=== PATIENT | female | born 1995 | race Caucasian/White ===

== ENCOUNTER 2019-01-10 10:04 | Emergency (ER) | payer OTHER, SELFPAY ==
[2019-01-10] MEDS ORDERED: ACETAMINOPHEN 325 MG TABLET ONE (10:49)
[2019-01-10] MEDS ORDERED: PEN G BENZ LA 1.2MU/2ML SYRINGE IM ONE (11:25)
--- NOTE | 2019-01-10 11:33 | EDPHYS ---
Physician Documentation [facility] Name: Shelby Mcgee Age: 23 yrs Sex: Female : 1995 Arrival Date: 01/10/2019 Time: 10:07 Bed 16 Private MD: Ubaldo Miller ED Physician Dajuan Vick HPI: 01/10 10:26 This 23 yrs old Female presents to ER via Ambulatory with complaints of Sore jmm Throat. 10:26 The patient presents with sore throat. Onset: The symptoms/episode began/occurred jmm gradually, 1 day(s) ago. This is a 23 year old female with no chronic medical conditions that presents to the ED with complaints of sore throat and chills beginning 1 days ago. Patient denies cough, denies vomiting. . 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 - Ebola Screening: : Patient negative for fever greater than or equal to 101.5 degrees Fahrenheit, and additional compatible Ebola Virus Disease symptoms. - Social history:: Smoking status: Patient/guardian denies using tobacco. ROS: 10:26 Constitutional: Positive for chills. jmm 10:26 ENT: Positive for sore throat. 10:26 Respiratory: Negative for cough, shortness of breath. 10:26 All other systems are negative. Exam: 10:26 Constitutional: This is a well developed, well nourished patient who is awake, alert, jmm and in no acute distress. Head/Face: atraumatic. Eyes: EOMI, no conjunctival erythema appreciated ENT: Moist Mucus Membranes Neck: Trachea midline, Supple Chest/axilla: Normal chest wall appearance and motion. Cardiovascular: Regular rate and rhythm. No edema appreciated Respiratory: Normal respirations, no respiratory distress appreciated Abdomen/GI: Non distended, soft 10:26 Skin: General appearance color normal MS/ Extremity: Moves all extremities, no obvious deformities appreciated, no edema noted to the lower extremities 10:26 ENT: Posterior pharynx: Uvula: normal, erythema, that is moderate. Vital Signs: 10:10 BP 130 / 84; Pulse 93; Resp 18; Temp 98.1(O); Pulse Ox 100% ; Weight 61.23 kg; Height 5 sv ft. 7 in. (170.18 cm); Pain 7/10; 11:12 BP 126 / 84; Pulse 78; Resp 16; Pulse Ox 100% on R/A; rb1 10:10 Body Mass Index 21.14 (61.23 kg, 170.18 cm) sv MDM: 10:17 Patient medically screened. [facility] 11:31 Data reviewed: vital signs, nurses notes. Counseling: I had a detailed discussion with jodi the patient and/or guardian regarding: the historical points, exam findings, and any diagnostic results supporting the discharge/admit diagnosis, lab results, the need for outpatient follow up, to return to the emergency department if symptoms worsen or persist or if there are any questions or concerns that arise at home. ED course: Patient is alert and non toxic in appearance. Patient advised to follow up with PCP and otherwise given strict return precautions. patient understood and agrees with the plan of care. . 01/10 10:24 Order name: Strep; Complete Time: 10:55 [facility] Administered Medications: 10:38 Drug: Tylenol 650 mg Route: PO; rb1 11:15 Follow up: Response: No adverse reaction rb1 11:15 Drug: Bicillin L-A 1.2 million units Route: IM; Site: right gluteus; rb1 11:40 Follow up: Response: No adverse reaction rb1 Disposition: 01/11 08:07 Co-signature as Attending Physician, Dajuan Vick MD I agree with the assessment and [facility] plan of care. Disposition: 01/10/19 11:32 Discharged to Home. Impression: Streptococcal pharyngitis. - Condition is Stable. - Discharge Instructions: Pharyngitis, Strep Throat. - Medication Reconciliation Form, Thank You Letter, Antibiotic Education, Prescription Opioid Use form. - Follow up: Ubaldo Miller MD; When: 2 - 3 days; Reason: Recheck today's complaints, Continuance of care, Re-evaluation by your physician. Signatures: Dispatcher [employer] Elizabeth Florentino RN RN sv Anderson, Corey, MD MD cha Mickail, Joel, PA PA jmm Barber, Rebecca, RN RN rb1 Corrections: (The following items were deleted from the chart) 01/10 12:00 11:32 01/10/2019 11:32 Discharged to Home. Impression: Streptococcal pharyngitis. rb1 Condition is Stable. Forms are Medication Reconciliation Form, Thank You Letter, Antibiotic Education, Prescription Opioid Use. Follow up: Ubaldo Miller; When: 2 - 3 days; Reason: Recheck today's complaints, Continuance of care, Re-evaluation by your physician. jodi
--- NOTE | 2019-01-10 11:33 | ER ---
Nurse's Notes [facility] Name: Shelby Mcgee Age: 23 yrs Sex: Female : 1995 Arrival Date: 01/10/2019 Time: 10:07 Bed 16 Private MD: Ubaldo Miller Diagnosis: Streptococcal pharyngitis Presentation: 01/10 10:09 Presenting complaint: Patient states: sore throat x 1 day, "There are nasty dots back sv there and my throat is swollen.". Transition of care: patient was not received from another setting of care. Onset of symptoms was January 09, 2019. Risk Assessment: Do you want to hurt yourself or someone else? Patient reports no desire to harm self or others. Care prior to arrival: None. 10:09 Method Of Arrival: Ambulatory sv 10:09 Acuity: JEREL 4 sv 10:12 Initial Sepsis Screen: Does the patient meet any 2 criteria? No. Patient's initial rb1 sepsis screen is negative. Does the patient have a suspected source of infection? No. Patient's initial sepsis screen is negative. 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 - Ebola Screening: : Patient negative for fever greater than or equal to 101.5 degrees Fahrenheit, and additional compatible Ebola Virus Disease symptoms. - Social history:: Smoking status: Patient/guardian denies using tobacco. Screenin:12 Abuse screen: Denies threats or abuse. Nutritional screening: No deficits noted. rb1 Tuberculosis screening: No symptoms or risk factors identified. Fall Risk None identified. Assessment: 10:12 General: Appears in no apparent distress. comfortable, Behavior is calm, cooperative, rb1 Denies fever. Pain: Complains of pain in throat Pain currently is 6 out of 10 on a pain scale. Neuro: Level of Consciousness is awake, alert, obeys commands, Oriented to person, place, time, situation. Cardiovascular: Capillary refill < 3 seconds is brisk in bilateral fingers. Respiratory: Airway is patent Respiratory effort is even, unlabored, Respiratory pattern is regular, symmetrical, Breath sounds are clear bilaterally. GI: Reports diarrhea, nausea. : No signs and/or symptoms were reported regarding the genitourinary system. EENT: Throat is reddened. Derm: Skin is pink, warm \\T\\ dry. 11:12 Reassessment: Patient appears in no apparent distress at this time. No changes from rb1 previously documented assessment. Vital Signs: 10:10 BP 130 / 84; Pulse 93; Resp 18; Temp 98.1(O); Pulse Ox 100% ; Weight 61.23 kg; Height 5 sv ft. 7 in. (170.18 cm); Pain 7/10; 11:12 BP 126 / 84; Pulse 78; Resp 16; Pulse Ox 100% on R/A; rb1 10:10 Body Mass Index 21.14 (61.23 kg, 170.18 cm) sv ED Course: 10:07 Patient arrived in ED. mr 10:08 Ubaldo Miller MD is Private Physician. mr 10:10 Triage completed. sv 10:11 Arm band placed on. sv 10:12 Helder Alfaro PA is PHCP. jmm 10:12 Dajuan Vick MD is Attending Physician. [facility] 10:12 Patient has correct armband on for positive identification. Bed in low position. Call rb1 light in reach. Side rails up X 1. Pulse ox on. NIBP on. 10:15 Demi Loo, DOMENICO is Primary Nurse. rb1 11:32 Ubaldo Miller MD is Referral Physician. [facility] 12:00 No provider procedures requiring assistance completed. Patient did not have IV access rb1 during this emergency room visit. Administered Medications: 10:38 Drug: Tylenol 650 mg Route: PO; rb1 11:15 Follow up: Response: No adverse reaction rb1 11:15 Drug: Bicillin L-A 1.2 million units Route: IM; Site: right gluteus; rb1 11:40 Follow up: Response: No adverse reaction rb1 Outcome: 11:32 Discharge ordered by . jm 12:00 Patient left the ED. rb1 12:00 Discharged to home ambulatory. rb1 12:00 Condition: stable 12:00 Discharge instructions given to patient, Instructed on discharge instructions, follow up and referral plans. Demonstrated understanding of instructions, follow-up care, Prescriptions given X none Signatures: Elizabeth Sheppard RN RN Helder Alfaro PA PA jmm Rivera, Angelina mr Eze, Demi, RN RN rb1
== END 2019-01-10 12:00 | disposition home or self-care (01) ==
LOC: ER 10:04
DX: J02.0 Streptococcal pharyngitis (principal); Z88.5 Allergy status to narcotic agent
CPT/HCPCS: 87081; 96372; 99283; J0561

== ENCOUNTER 2019-03-09 10:42 | Emergency (ER) | payer SELFPAY ==
[2019-03-09] MEDS ORDERED: ACETAMINOPHEN 325 MG TABLET ONE (11:16)
[2019-03-09] MEDS ORDERED: IBUPROFEN 400 MG TAB ONE (11:16)
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
== END 2019-03-09 13:56 | disposition home or self-care (01) ==
LOC: ER 10:42
PROC: 2W3CX1Z Immobilization of Right Lower Arm using Splint (ICD-10-PCS; principal; 2019-03-09)
DX: S52.231A Displaced oblique fracture of shaft of right ulna, initial encounter for closed fracture (principal); Y04.0XXA Assault by unarmed brawl or fight, initial encounter; Z88.5 Allergy status to narcotic agent
CPT/HCPCS: 99284

== ENCOUNTER 2019-08-20 19:16 | Emergency (ER) | payer SELFPAY ==
--- NOTE | 2019-08-20 21:56 | ER ---
Nurse's Notes [facility] Name: Shelby Mcgee Age: 23 yrs Sex: Female : 1995 Arrival Date: 08/20/2019 Time: 19:18 Bed 11 Private MD: Diagnosis: Acute pharyngitis Presentation: 08/20 19:43 Presenting complaint: Patient states: "I get strep throat often especially around this jd3 time of year. and I feel the symptoms may have returned.". Transition of care: patient was not received from another setting of care. Onset of symptoms was August 16, 2019. Risk Assessment: Do you want to hurt yourself or someone else? Patient reports no desire to harm self or others. Initial Sepsis Screen: Does the patient meet any 2 criteria? No. Patient's initial sepsis screen is negative. Does the patient have a suspected source of infection? No. Patient's initial sepsis screen is negative. Note Tylenol taken at 1830. Care prior to arrival: None. 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 - Social history:: Smoking status: Patient uses tobacco products, denies chronic smoking, but will smoke occasionally. - Ebola Screening: : Patient negative for fever greater than or equal to 101.5 degrees Fahrenheit, and additional compatible Ebola Virus Disease symptoms. Screenin:46 Abuse screen: Denies threats or abuse. Denies injuries from another. Nutritional eb1 screening: No deficits noted. Tuberculosis screening: No symptoms or risk factors identified. Fall Risk None identified. Assessment: 21:43 General: Appears in no apparent distress. Behavior is calm, cooperative, appropriate eb1 for age. Pain: Complains of pain in throat. Neuro: No deficits noted. Cardiovascular: No deficits noted. Respiratory: No deficits noted. Airway is patent Respiratory effort is even, unlabored, Breath sounds are clear bilaterally. GI: No deficits noted. No signs and/or symptoms were reported involving the gastrointestinal system. : No deficits noted. No signs and/or symptoms were reported regarding the genitourinary system. EENT: No deficits noted. No signs and/or symptoms were reported regarding the EENT system. Throat is reddened. Vital Signs: 19:45 BP 135 / 84; Pulse 98; Resp 17 S; Temp 98.4(TE); Pulse Ox 99% on R/A; Weight 61.23 kg jd3 (R); Height 5 ft. 7 in. (170.18 cm) (R); Pain 5/10; 21:45 BP 124 / 79; Pulse 95; Resp 18; Temp 97.7(T); Pulse Ox 96% on R/A; Pain 4/10; eb1 19:45 Body Mass Index 21.14 (61.23 kg, 170.18 cm) jd3 ED Course: 19:18 Patient arrived in ED. ds1 19:44 Triage completed. jd3 19:46 Arm band placed on. jd3 20:31 Keira Coreas FNP-C is PHCP. kb 20:31 Dajuan Vick MD is Attending Physician. kb 21:34 Helder Alfaro PA is PHCP. [facility] 21:34 Dajuan Vick MD is Attending Physician. jodi 21:34 PHCP role handed off by Helder Alfaro PA kb 21:34 Keira Coreas FNP-C is PHCP. kb 21:34 Helder Alfaro PA is PHCP. kb 21:43 Strep Sent. eb1 21:46 Patient has correct armband on for positive identification. Bed in low position. Call eb1 light in reach. 22:19 No provider procedures requiring assistance completed. Patient did not have IV access eb1 during this emergency room visit. Administered Medications: No medications were administered Outcome: 21:55 Discharge ordered by . jodi 22:19 Discharged to home ambulatory. eb1 22:19 Condition: good 22:19 Discharge instructions given to patient, Instructed on discharge instructions, follow up and referral plans. medication usage, Demonstrated understanding of instructions, follow-up care, medications, Prescriptions given X 1. 22:20 Patient left the ED. eb1 Signatures: Keira Coreas FNP-C MOTOR POWER CONNECTOR-Helder Escoto PA PA jmm Sanford, Demi ds1 Tomás Cameron, RN RN jd3 Holley Gimenez, RN RN eb1
--- NOTE | 2019-08-20 21:57 | EDPHYS ---
Physician Documentation [facility] Name: Shelby Mcgee Age: 23 yrs Sex: Female : 1995 Arrival Date: 08/20/2019 Time: 19:18 Bed 11 Private MD: ED Physician Dajuan Vick HPI: 08/20 21:51 This 23 yrs old Female presents to ER via Ambulatory with complaints of Sore jmm Throat. 21:51 The patient presents with sore throat. Onset: The symptoms/episode began/occurred jmm gradually. Modifying factors: The symptoms are alleviated by nothing, the symptoms are aggravated by nothing. Associated signs and symptoms: Pertinent negatives chest pain, cough. This is a 23 year old female with no chronic medical conditions that presents ot the ED with complaints of sore throat beginning 2 to 3 days ago. . 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 - Social history:: Smoking status: Patient uses tobacco products, denies chronic smoking, but will smoke occasionally. - Ebola Screening: : Patient negative for fever greater than or equal to 101.5 degrees Fahrenheit, and additional compatible Ebola Virus Disease symptoms. ROS: 21:51 Constitutional: Negative for fever, chills, and weight loss, Cardiovascular: Negative jmm for chest pain, palpitations, and edema, Respiratory: Negative for shortness of breath, cough, wheezing, and pleuritic chest pain. 21:51 ENT: Positive for sore throat. 21:51 All other systems are negative. Exam: 21:51 Constitutional: This is a well developed, well nourished patient who is awake, alert, jmm and in no acute distress. Head/Face: atraumatic. Eyes: EOMI, no conjunctival erythema appreciated 21:51 Neck: Trachea midline, Supple Chest/axilla: Normal chest wall appearance and motion. Cardiovascular: Regular rate and rhythm. No edema appreciated Respiratory: Normal respirations, no respiratory distress appreciated Abdomen/GI: Non distended, soft Back: Normal ROM Skin: General appearance color normal MS/ Extremity: Moves all extremities, no obvious deformities appreciated, no edema noted to the lower extremities Neuro: Awake and alert, normal gait Psych: Behavior is normal, Mood is normal, Patient is cooperative and pleasant 21:51 ENT: Posterior pharynx: Airway: normal, Tonsils: Uvula: midline, erythema, that is moderate. Vital Signs: 19:45 BP 135 / 84; Pulse 98; Resp 17 S; Temp 98.4(TE); Pulse Ox 99% on R/A; Weight 61.23 kg jd3 (R); Height 5 ft. 7 in. (170.18 cm) (R); Pain 5/10; 21:45 BP 124 / 79; Pulse 95; Resp 18; Temp 97.7(T); Pulse Ox 96% on R/A; Pain 4/10; eb1 19:45 Body Mass Index 21.14 (61.23 kg, 170.18 cm) jd3 MDM: 21:50 Patient medically screened. [facility] 21:51 Data reviewed: vital signs, nurses notes. Counseling: I had a detailed discussion with jodi the patient and/or guardian regarding: the historical points, exam findings, and any diagnostic results supporting the discharge/admit diagnosis, the need for outpatient follow up, to return to the emergency department if symptoms worsen or persist or if there are any questions or concerns that arise at home. ED course: Patient is alert and non toxic in appearance in the ED. Patient advised to follow up with pcp and otherwise given strict return precautions. Patient understood and agrees with the plan of care. . 08/20 20:31 Order name: Strep kb 08/20 21:09 Order name: Group A Streptococcus Rapid Sc; Complete Time: 21:11 EDMS Administered Medications: No medications were administered Disposition: 08/20/19 21:55 Discharged to Home. Impression: Acute pharyngitis. - Condition is Stable. - Discharge Instructions: Pharyngitis. - Prescriptions for Amoxicillin 875 mg Oral Tablet - take 1 tablet by ORAL route every 12 hours for 10 days; 20 tablet. - Medication Reconciliation Form, Thank You Letter, Antibiotic Education, Prescription Opioid Use form. - Follow up: Private Physician; When: 2 - 3 days; Reason: Recheck today's complaints, Continuance of care, Re-evaluation by your physician. Addendum: 08/23/2019 10:42 Co-signature as Attending Physician, Dajuan Vick MD I agree with the assessment and c roberts plan of care. Signatures: Dispatcher [employer] EDKeira Dietrich, [employer]-Becky CRANEP-Dajuan Bray MD MD cha Mickail, Joel, PA PA jmm Davies, Jonathon, RN RN jd3 Holley Gimenez RN RN eb1 Corrections: (The following items were deleted from the chart) 08/20 22:20 21:55 08/20/2019 21:55 Discharged to Home. Impression: Acute pharyngitis. Condition is eb1 Stable. Forms are Medication Reconciliation Form, Thank You Letter, Antibiotic Education, Prescription Opioid Use. Follow up: Private Physician; When: 2 - 3 days; Reason: Recheck today's complaints, Continuance of care, Re-evaluation by your physician. jodi
[2019-08-21 04:47] VITALS: BP 124/79; TEMP 97.7; O2SAT 96
== END 2019-08-20 22:20 | disposition home or self-care (01) ==
LOC: ER 19:16
DX: J02.9 Acute pharyngitis, unspecified (principal); Z88.5 Allergy status to narcotic agent
CPT/HCPCS: 87070; 87081; 99283

== ENCOUNTER 2022-07-10 08:47 | Emergency (ER) | payer OTHER ==
--- OUTSIDE RECORDS SUMMARY | 2022-07-10 08:50 | XMS REPORT | Continuity of Care Document ---
:1995 Author Organization [facility] t Address [address] [place] [address] Care Team Providers Name Role Phone Pcp, Patient Does Not Have A Primary Care Physician [id number] Shawna Tompkins Attending Clinician Unavailable Doctor Unassigned, [place] Attending Clinician Unavailable Nurse, [facility] Attending Clinician Unavailable Provider, [facility] Attending Clinician Unavailable Mariela Miller Attending Clinician MARIELA BELCHER Attending Clinician Unavailable Shawna Tompkins Admitting Clinician Unavailable Physician, No Primary or Family Admitting Clinician Unavaila [employer] [facility] Payers Payer Name Policy Type Policy Number Effective Date Expiration Date S ource Problems Condition Condition Condition Status Onset Resolution Last Treating Co mments Source Name Details Category Date Date Treatment Clinician Date No known No known Disease Unive rs active active ity of problems problems [facility] Allergies, Adverse Reactions, Alerts Allergy Allergy Status Severity Reaction(s) Onset Inactive Treating Comm ents Source Name Type Date Date Clinician No Known DA Active U 2019-09 [facility] [place] No Known DA Active U 2019-09 [facility] Allergie 2- [facility] 00 [facility] NO KNOWN Drug Active Univers ALLERGIE Class ity of S [facility] Social History Social Habit Start Date Stop Date Quantity Comments Source Exposure to Not sure [facility] SARS-CoV-2 [place] [facility] (event) Branch Tobacco use and 2021-01-30 2021-01-30 Never used Universit y of exposure 00:00:00 00:00:00 [facility] Alcohol intake 2021-01-30 2021-01-30 Current drinker of Un iversity of 00:00:00 00:00:00 alcohol (finding) [facility] edical [place] Alcohol Comment 2016-06-04 2016-06-04 Occasional drink Uni versity of 00:00:00 00:00:00 [facility] Sex Ass[birth year] At [birth year] Universit y of 00:00:00 00:00:00 [facility] Smoking Status Start Date Stop Date Source Never smoker [facility] Medications Ordered Filled Start Stop Current Ordering Indication Dosage Frequency Signature Comments Components Source Medication Medication Date Date Medication? Clinician (SIG) Name Name methylPREDN 2020- No [id number] Take by Univers ISolone 4 -02 02-21 mouth ity of mg tablets 00:00: 04:59 SEE-INSTRU [place] 00 :00 CTIONS for Medical 6 days. Branch follow package directions triamcinolo 2020- No [id number] 40mg Univers ne 5-10 05-10 ity of acetonide 22:00: 21:12 [place] (KENALOG) 00 :00 Medical injection Branch 40 mg triamcinolo 2020- No [id number] 40mg 40 mg, Univers ne 5-10 05-10 Intramuscu ity of acetonide 22:00: 21:12 [place]CE, [place] (KE[place] 00 :00 1 dose, Medical injection Mon Branch 40 mg 01/29/21 at 1700, Routine triamcinolo 2020- No [id number] 40mg Univers ne 5-10 05-10 ity of acetonide 22:00: 21:12 [place] (KENALOG) 00 :00 Medical injection Branch 40 mg triamcinolo 2020- No [id number] 40mg 40 mg, Univers ne 5-10 05-10 Intramuscu ity of acetonide 22:00: 21:12 [place], [place]CE, [place] (KE[place]LOG[place] 00 :00 1 dose, Medical injection Mon Branch 40 mg 01/29/21 at 1700, Routine triamcinolo 2020- No [id number] Apply to [facility] - 05-25 area(s) 2 ity of acetonide 00:00: 04:59 (two) [place] 0.1 % 00 :00 times Medical ointment daily for Branch 14 days. triamcinolo 2020- No [id number] Apply to [facility] -06 26-25 area(s) 2 ity of acetonide 00:00: 04:59 (two) [place] 0.1 % 00 :00 times Medical ointment daily for Branch 14 days. triamcinolo 2020- No [id number] Apply to [facility] 01-29-25 area(s) 2 ity of acetonide 00:00: 04:59 (two) [place] 0.1 % 00 :00 times Medical ointment daily for Branch 14 days. Nitrofurant 2020- No [id number] 100mg Take 1 Univers oin&Nit. 5-10 05-16 capsule by ity of [place] 00:00: 04:59 mouth 2 [place] (MACROBID) 00 :00 (two) Medical 100 mg times Branch capsule daily for 5 days. Nitrofurant 2020- No [id number] 100mg Take 1 Univers oin&Nit. 5-10 05-16 capsule by ity of Macrocryst 00:00: 04:59 mouth 2 [place] (MACROBID) 00 :00 (two) Medical 100 mg times Branch capsule daily for 5 days. Nitrofurant 2020- No [id number] 100mg Take 1 Univers oin&Nit. 5-10 05-16 capsule by ity of Macrocryst 00:00: 04:59 mouth 2 [place] (MACROBID) 00 :00 (two) Medical 100 mg times Branch capsule daily for 5 days. miconazole Yes Apply to Uni vers (MICOTIN) 2 9-22 area(s) 2 ity of % cream 00:00: (two) [place] 00 times Medical daily. Branch miconazole Yes Apply to Uni vers (MICOTIN) 2 9-22 area(s) 2 ity of % cream 00:00: (two) [place] 00 times Medical daily. Branch miconazole 2016-0 Yes Apply to Uni vers (MICOTIN) 2 9-22 area(s) 2 ity of % cream 00:00: (two) [place] 00 times Medical daily. Branch miconazole 2016-0 Yes Apply to Uni vers (MICOTIN) 2 9-22 area(s) 2 ity of % cream 00:00: (two) [place] 00 times Medical daily. Branch miconazole 2016-0 Yes Apply to Uni vers (MICOTIN) 2 9-22 area(s) 2 ity of % cream 00:00: (two) [place] 00 times Medical daily. Branch miconazole 2016-0 Yes Apply to Uni vers (MICOTIN) 2 9-22 area(s) 2 ity of % cream 00:00: (two) [place] 00 times Medical daily. Branch econazole 2015-0 Yes [id number] Apply to Univers nitrate 1 % 9-21 area(s) 2 ity of cream 00:00: (two) [place] 00 times Medical daily. Branch econazole 2016-0 Yes [id number] Apply to Univers nitrate 1 % 9-21 area(s) 2 ity of cream 00:00: (two) [place] 00 times Medical daily. Branch econazole 2016-0 Yes [id number] Apply to Univers nitrate 1 % 9-21 area(s) 2 ity of cream 00:00: (two) [place] 00 times Medical daily. Branch econazole 2016-0 Yes [id number] Apply to Univers nitrate 1 % 9-21 area(s) 2 ity of cream 00:00: (two) [place] 00 times Medical daily. Branch econazole 2016-0 Yes [id number] Apply to Univers nitrate 1 % 9-21 area(s) 2 ity of cream 00:00: (two) [place] 00 times Medical daily. Branch econazole 2016-0 Yes [id number] Apply to Univers nitrate 1 % 9-21 area(s) 2 ity of cream 00:00: (two) [place] 00 times Medical daily. [place] Vital Signs Vital Name Observation Time Observation Value Comments Source Systolic blood 2021-01-29 20:34:00 113 mm[Hg] Univer sity of pressure [facility] Diastolic blood 2021-01-29 20:34:00 76 mm[Hg] Unive rsity of pressure [facility] Heart rate 2021-01-29 20:34:00 101 /min [facility] Body temperature 2021-01-29 20:34:00 37.28 [facility] Respiratory rate 2021-01-29 20:34:00 18 /[facility] Body height 2021-01-29 20:34:00 170.2 cm [facility] Body weight 2021-01-29 20:34:00 65.772 kg [facility] BMI 2021-01-29 20:34:00 22.71 kg/m2 [facility] Oxygen saturation in 2021-01-29 20:34:00 98 /min [facility] Arterial blood by [facility] Pulse oximetry [place] Procedures Procedure Date / Time Performed Performing Clinician [facility] florian URINALYSIS 2021-01-29 21:13:00 [facility] URINE CULTURE 2021-01-29 21:13:00 [facility] CONSENT/REFUSAL FOR 2021-01-29 20:29:08 Doctor Unassigned, No Un [facility] DIAGNOSIS AND Name [facility] TREATMENT [id number] 2020-09-13 00:00:00 [facility] [id number] 2020-09-13 00:00:00 [facility] [id number] 2020-09-13 00:00:00 [facility] [id number] 2020-09-13 00:00:00 [facility] Encounters Start End Encounter Admission Attending Care Care Encounter Source Date/Time Date/Time Type Type Clinicians Facility Department ID 2020-09-12 Inpatient ANDREINA Tompkins, [facility] [id number] [facility] 09:00:00 Shawna 29 [place] [facility] 2021-05-29 2021-05-29 Letter Doctor ADAM [id number] Univers 00:00:00 00:00:00 (Out) Unassigned, NEIL 350.1.13.10 ity of [place] [facility] 4.2.7.2.686 [place] [phone] [place] [address] Branch 2021-02-02 2021-02-02 Telephone Nurse, Tony [facility] [id number] Univers 00:00:00 00:00:00 Ur[facility] Care Health 350.1.13.10 ity of Surgical 4.2.7.2.686 [place] Specialti [phone] Wy dical es [address] [facility] 2021-01-29 2021-01-29 Urgent Provider, Tony [facility] [id number] Univers 15:32:09 16:07:37 [facility] 350.1.13.10 ity of [place] 4.2.7.2.686 [place] Professio [phone] [facility] [address] [place] [address] 2021-01-29 2021-01-29 Outpatient R SIMI [facility] [id number] Univers 15:20:00 15:20:00 MARIELA ity [facility] 2021-01-29 2021-01-29 Orders Doctor ADAM [id number] Univers 00:00:00 00:00:00 Only Unassigned, NEIL 350.1.13.10 ity of [place] [facility] 4.2.7.2.686 Moiz as [phone] [facility] [address] [place] 2020-05-17 2020-05-17 Outpatient Yoni [facility] RADI [id number] [facility] 08:00:00 08:00:00 [facility]a [facility] [place] [facility] 2020-04-19 2020-04-19 Outpatient Yoni [facility] RADI [id number] [facility] 08:00:00 08:00:00 Shawna [facility] Results Test Description Test Time Test Comments Results Result Comments Source URINALYSIS 2021-01-30 01:49:51 Test Item Value Reference Range Interpretation Comme nts APPEARANCE (test code = Hazy Clear A 5318031665) COLOR (test code = 1958756531) Mikaela Yellow A PH (test code = 3595443364) 4.8-8.0 SP GRAVITY (test code = 1.003-1.030 9665945813) GLU U QUAL (test code = Normal Normal 2034964865) BLOOD (test code = 5295962548) 1+ Negative A KETONES (test code = 9874456368) Negative Negative PROTEIN (test code = 2887-8) Negative Negative UROBILIN (test code = 4.0 mg/dL Normal A 6165524074) BILIRUBIN (test code = Negative Negative 8495174626) NITRITE (test code = 9849722896) Positive Negative A LEUK IZABEL (test code = Negative Negative 4669219412) RBC/HPF (test code = 6393838974) <1 See_Comment [Automated message] The system which ge nerated this result transmit gilda reference range: 0 - 3 HP F. The reference range was not used to interpret th is result as normal/abnormal . WBC/HPF (test code = 8505041650) See_Comment [Automated message] The system which ge nerated this result transmit gilda reference range: 0 - 5 HP F. The reference range was not used to interpret th is result as normal/abnormal . BACTERIA (test code = Many Negative A 4057480950) MUCOUS (test code = 0573646876) Moderate Negative LPF A SQ EPITH (test code = HPF 2496155271) CA OXALATE (test code = See_Comment H [Au tomated message] The 2271539289) system which ge nerated this result transmit gilda reference range: <=1 HPF. The reference range was not used to interpret th is result as normal/abnormal . Lab Interpretation (test code = Abnormal 80469-7) [facility] 01:49:51 Test Item Value Reference Range Interpretation Comments APPEARANCE (test code = Hazy Clear A 4972302271) COLOR (test code = Mikaela Yellow A 5241674084) PH (test code = 4.8-8.0 8391895343) SP GRAVITY (test code = 1.003-1.030 3144750779) GLU U QUAL (test code = Normal Normal 8105804903) BLOOD (test code = 1+ Negative A 1350063823) KETONES (test code = Negative Negative 9686524694) PROTEIN (test code = Negative Negative 2887-8) UROBILIN (test code = 4.0 mg/dL Normal A 8067685110) BILIRUBIN (test code = Negative Negative 6496035549) NITRITE (test code = Positive Negative A 6186301853) LEUK IZABEL (test code = Negative Negative 7185955042) RBC/HPF (test code = <1 See_Comment [Autom ated message] 8409618492) The system [employer] generated this result transmit gilda reference range : 0 - 3 HPF. The refe rence range was not u sed to interpret th is result as normal/abnormal . WBC/HPF (test code = See_Comment [Autom ated message] 6422719115) The system [employer] generated this result transmit gilda reference range : 0 - 5 HPF. The refe rence range was not u sed to interpret th is result as normal/abnormal . BACTERIA (test code = Many Negative A 4556793871) MUCOUS (test code = Moderate Negative LPF A 2841519753) SQ EPITH (test code = HPF 8850805687) CA OXALATE (test code = See_Comment H [Au tomated message] 5889908580) The system [employer] generated this result transmit gilda reference range : <=1 HPF. The refere nce range was not u sed to interpret th is result as normal/abnormal . Lab Interpretation (test Abnormal code = 91494-1) [facility] [id number] 08:16:00 Test Item Value Reference Range Interpretation Comments HEMOGLOBIN (test code = HGB) 10.3 g/dL 10.7-13.9 L HEMATOCRIT (test code = HCT) 31.8 % 32.1-42.1 L AG HEPATITIS B [id number] 22:00:00 Test Item Value Reference Range Interpretation Comments AG HEPATITIS B SURFACE (test code NONREACTIVE NONREACTIVE = HBSAG) IS CONSENT FORM SIGNED FOR HIV TESTING? NAB HEPATITIS C [id number] 22:00:00 Test Item Value Reference Range Interpretation Comments AB HEPATITIS C (test code = NONREACTIVE NONREACTIVE HCVAB) SIGNAL TO CUTOFF (test code = 0.05 <0.80 N CUTOFF) IS CONSENT FORM SIGNED FOR HIV TESTING? NAB [id number] 22:00:00 Test Item Value Reference Range Interpretation Comments AB TREPONEMA (test code = TREPAB) NONREACTIVE NONREACTIVE IS CONSENT FORM SIGNED FOR HIV TESTING? NAB HIV 1 22:00:00 Test Item Value Reference Range Interpretation Comments AB HIV 1 2 (test NONREACTIVE NONREACTIVE [facility] code = MJH85CN) 4th Gen HIV Ag/Ab Combo Screen IS CONSENT FORM SIGNED FOR HIV TESTING? NAG HEPATITIS B [id number] 21:31:00 Test Item Value Reference Range Interpretation Comments AG HEPATITIS B SURFACE (test code NONREACTIVE NONREACTIVE = HBSAG) IS CONSENT FORM SIGNED FOR HIV TESTING? NAB HEPATITIS C [id number] 21:31:00 Test Item Value Reference Range Interpretation Comments AB HEPATITIS C (test code = HCVAB) NONREACTIVE SIGNAL TO CUTOFF (test code = CUTOFF) <0.80 IS CONSENT FORM SIGNED FOR HIV TESTING? NAB [id number] 21:31:00 Test Item Value Reference Range Interpretation Comments AB TREPONEMA (test code = TREPAB) NONREACTIVE NONREACTIVE IS CONSENT FORM SIGNED FOR HIV TESTING? NAB HIV 1 21:31:00 Test Item Value Reference Range Interpretation Comments AB HIV 1 2 (test code = GDH73LY) NONREACTIVE IS CONSENT FORM SIGNED FOR HIV TESTING? NCOVID 19 Asymptomatic IH [id number] 21:20:00 Test Item Value Reference Range Interpretation Comments COVID 19 NEGATIVE NEGATIVE This test has b een Asymptomatic IH AG authorize d only for the (test code = detection ofpro teins from COVNONPUIAG) SARS-CoV-2, not for any other viruses orpathogens. Ne gative results should be treated as presumptive andconfirmed wi th a molecular assay , if necessary for patientmanageme nt. Negative result s do not rule out COVID- 19 andshould not b e used as the sole basis for treatment orpat ient management deci sions, including infec tion controldecision s. Negative result s should be considered i n thecontext of a patient's recent exposure s, history and thepresence of clinical signs and symptoms consis tent withCOVID-19. T his test has not been FD A cleared or approved; th e test hasbeen authori zed by FDA under an Emerge ncy Use Authorization(E UA) for use by mohinder salazar certified under the CLIA thatmeet the re quirements to perform mode rate, high or waivedcomple xity tests. This obey t is authorized for use at thePoint of Car e (POC), i.e., in patien t care settingsoperati ng under a CLIA Certificat e of Waiver, Certifi norma ofCompliance, o r Certificate of Accreditation. This test is only authori zed for the duration of thedeclaration that circumstances e xist justifying theauthorizatio n of emergency use o f in vitro diagnostic test sfor detection and/o r diagnosis of CO VID-19 under Vxhmcvi39 4(b)(1) of the Act, 21 U.S .C. 360bbb-3(b)(1), unless theauthorizatio n is terminated or r evoked sooner. CBC W/AUTO [id number] 21:08:00 Test Item Value Reference Range Interpretation Comments WHITE BLOOD CELL (test code = WBC) 10.4 K/mm3 6.6-12.1 N RED BLOOD CELL (test code = RBC) 4.16 M/mm3 3.45-5.01 N HEMOGLOBIN (test code = HGB) 11.8 g/dL 10.7-13.9 N HEMATOCRIT (test code = HCT) 36.0 % 32.1-42.1 N MEAN CELL VOLUME (test code = MCV) 87 fL 84.1-94.8 N MEAN CELL HGB (test code = MCH) 28.4 pg 27-35 N MEAN CELL HGB CONCETRATION (test 32.8 gm/dL 32.2-34.1 N code = MCHC) RED CELL DISTRIBUTION WIDTH (test 12.6 % 12.4-16.5 N code = RDW) PLATELET COUNT (test code = PLT) 163 K/mm3 133-385 N MEAN PLATELET VOLUME (test code = 11.0 fl 9.1-12.7 N MPV) NEUTROPHIL % (test code = NT%) 74.4 % 56.5-79.4 N LYMPHOCYTE % (test code = LY%) 19.0 % 14.3-34.3 N MONOCYTE % (test code = MO%) 5.1 % 5.1-10.4 N EOSINOPHIL % (test code = EO%) 0.8 % 0.1-3.0 N BASOPHIL % (test code = BA%) 0.2 % 0.1-1.0 N NEUTROPHIL # (test code = NT#) 7.7 K/mm3 LYMPHOCYTE # (test code = LY#) 2.0 K/mm3 MONOCYTE # (test code = MO#) 0.5 K/mm3 EOSINOPHIL # (test code = EO#) 0.08 K/mm3 BASOPHIL # (test code = BA#) 0.0 K/mm3 RBC MORPHOLOGY REQUIRED (test code NORMAL NORMAL = RBCM) PLATELET MORPHOLOGY REQUIRED (test NORMAL NORMAL code = PLTMR) COVID 19 Asymptomatic IH [id number] 14:17:00 Test Item Value Reference Range Interpretation Comments COVID 19 NEGATIVE NEGATIVE This test has b een Asymptomatic IH AG authorize d only for the (test code = detection ofpro teins from COVNONPUIAG) SARS-CoV-2, not for any other viruses orpathogens. Ne gative results should be treated as presumptive andconfirmed wi th a molecular assay , if necessary for patientmanageme nt. Negative result s do not rule out COVID- 19 andshould not b e used as the sole basis for treatment orpat ient management deci sions, including infec tion controldecision s. Negative result s should be considered i n thecontext of a patient's recent exposure s, history and thepresence of clinical signs and symptoms consis tent withCOVID-19. T his test has not been FD A cleared or approved; th e test hasbeen authori kevon by FDA under an Emerge ncy Use Authorization(E UA) for use by laborato marie certified under the CLIA thatmeet the re quirements to perform mode rate, high or waivedcomple xity tests. This obey t is authorized for use at thePoint of Car e (POC), i.e., in patien t care settingsoperati ng under a CLIA Certificat e of Waiver, Certifi norma ofCompliance, o r Certificate of Accreditation. This test is only authori zed for the duration of thedeclaration that circumstances e xist justifying theauthorizatio n of emergency use o f in vitro diagnostic test sfor detection and/o r diagnosis of CO VID-19 under Dzlkzum10 4(b)(1) of the Act, 21 U.S .C. 360bbb-3(b)(1), unless theauthorizatio n is terminated or r evoked sooner. - US FLW [id number] 08:58:00 Patient Name: YOSI JO Unit No: [id number] EXAMS: CPT CODE: [id number] [place] [facility] [address] [place], [place] [address] OBSTETRICAL ULTRASOUND REPORT Pat. Name: YOSI JO Pat. No: [id number] Study Date: 05/17/2020 8:13am , Age: 02 1995, 24 Pregnancies: 2, Para 1 LMP: Unknown GA by 1st: 22w1d GA by US: 20w1d GA Selected: 22w1d (From First S) IAN: 09/19/2020 Referring MD: SHAWNA BEE Photographer Scientific: Jadyn Navas RDMS, T CPT4: USPREGFU Admitting MD: SHAWNA TOMPKINS Hist/Ind: SCAN 2 FOLLOW UP SIZE LESS THAN DATES MEASUREMENTS AGE GROWTH EVALUATION Measurement GA Range Srce %forGA Ratios ----- ---- ------- BPD 4.7 cm 20w1d (98t6y-40o2o) Hadl BPD <05 FL/BPD 0.70 HC 18.4 cm 20w5d (77k9s-62e6z) Hadl HC 9% FL/AC 0.22 (0.20 - 0.24) APD 4.9 cm APD HC/AC 1.22 (1.04 - 1.23) TAD 4.7 cm TAD CI 0.73 (0.70 - 0.86) AC 15.1 cm 20w0d (18w0d- 22w0d) Hadl AC <05 FL 3.3 cm 19w6d (82l6j-01k8m) Hadl FL <05 HL 3.1 cm 20w3d (88o8m-95s5w) Jesus HL 23% GA for sonogram 20w1d (70k1i-93e0c) Weight Estimate: based on (BPD,HC,AC,FL) [place] Weight: 347 gm (296-398) [place] : 0lbs, 12oz Normal: 490 gm (327-930) Vinay Wt% 15% for 22.1 wks Cervical Length: 5.8 cm Heart Rate: 140 bpm Amniotic Fluid Index: 12.1cm (09.7- 21.6) Q1: 3.3cm Q2: 3.6cm Q3: 2.9cm Q4: 2.3cm MATERNAL ANATOMY Ovaries LxHxW (cm) Right 3.4 x 1.5 x 2.2 Vol: 5.9cc Left 2.7 x 1.1 x 1.5 Vol: 2.3cc CLINICAL SUMMARY Type of Gestation: Ren Intrauterine in vertex present ation. size is less than expected for menstrual age, but correlates with dates on initial ultrasound. [facility] NAME: YOSI JO Radiology Department PHYS: Shawna Michelle MD [address] : 1995 AGE: 24 SEX: [place], [place] [address] LOC: [facility] PHONE #: [phone] EXAM DATE: 05/17/2020 STATUS: SEBASTIAN CLI FAX #: [phone] RAD NO: Page1 Signed Report (CONTINUED) Patient Name: YOSI JO Unit No: [id number] EXAMS: CPT CODE: [id number] [address] (Continued) growth: Consistent with normal growth motion and organs seen: heart motion seen body and limb movements seen spine seen a bnormalities observed: None seen at this exam Placental location: Anterior Placental maturity : Grade 1 There is no evidence of placenta previa. Amniotic fluid volume is normal. Uterus and adnexa: No significant abnormality is seen. Thank you for allowing us to participate in the care of this patient.Waldo Branham M.D. Electronic Signature 05/17/2020 08:58am at 0858 Reported and signed by: Waldo Branham MD CC: Shawna Tompkins MD Technologist: Jadyn Navas RDMS, RVT Probe: Trnscrbd D/ (0858) [id number] Orig Print D/T: S: 05/17/2020 (0858) [facility] NAME: YOSI JO Radiology Department PHYS: Shawna Michelle MD [address] : 1995 AGE:24 SEX: [place], [place] [address] LOC: [facility] PHONE #: [phone] EXAM DATE: 05/17/2020 STATUS: REG CLI FAX #: [phone] RAD NO: Page 2 Signed Report Patient Name: YOSI JO Unit No: [id number] EXAMS: CPT CODE: [id number] US FLW UP 56142 (Continued) [facility] NAME: YOSI JO Radiology Department PHYS: Shawna Michelle MD [address]OB: 1995 AGE: 24 SEX: [place] [address] LOC: [facility] PHONE #: [phone] EXAM DATE: 05/17/2020 STATUS: REG CLI FAX #: [phone] RAD NO: Page 3 Signed Report- US PREG AFTER [id number] 15:43:00 Patient Name: YOSI JO Unit No: [id number] EXAMS: CPT CODE: [id number] US PREG AFTER TRI [id number] [place], [place] [address] OBSTETRICAL ULTRASOUND REPORT Pat. Name: YOSI JO Pat. No: [id number] Study Date: 04/19/2020 12:33pm , Age: 02 1995, 24 Pregnancies: 2, Para 1 LMP: Unknown GA by US: 16w0d GA Selected: 18w1d (From Known E) IAN: 09/19/2020 Referring MD: PERNELL TOMPKINS Photographer Scientific: Jadyn Navas RDMS, RVT CPT4: [id number] Admitting MD: SHAWNA TOMPKINS Hist/Ind:SCAN 1 ANATOMY MEASUREMENTS AGE GROWTH EVALUATION Measurement GA Range Srce %for GA Ratios ----- ---- ------- BPD 3.3 cm 15w6d (53v1q-03k3d) Hadl BPD <05 FL/BPD 0.61 HC 13.2 cm 16w5d (06o7r-16w7x) Hadl HC <05 FL/AC 0.19 APD 3.4 cm APD HC/AC 1.25 (1.07 - 1.26) TAD 3.3 cm TAD CI 0.73 (0.70 - 0.86) AC 10.5 cm 16w1d (95m7t-58z3j) Hadl AC <05 FL 2.0 cm 15w5d (61b6h-21n4c) Hadl FL <05 HL 2.0 cm 16w0d (13w2d- 18w5d) Jesus SMITH 13% GA for sonogram 16w0d (48j1l-13w5g) Weight Estimate: based on (HL,BPD,HC,AC,FL) Avg Weight: 151 gm (129-173) [place]lock : 0lbs, 5oz Cervical Length: 5.2 cm Heart Rate: 147 bpm MATERNAL ANATOMY Ovaries LxHxW (cm) Right 3.6 x 1.3 x 1.7 Vol: 4.2cc Left 2.0 x 1.4 x 1.5 Vol: 2.2cc CLINICAL SUMMARY Type of Gestation: Ren Intrauterine in variable presentation. size is less than expected for menstrual age. motion and organsseen: heart motion seen body and limb movements seen Four chamber heart observed Left ventricular outflow tract (LVOT) seen Right ventricular outflow tract (RVOT) seen Normal intracranial anatomy seen [facility] NAME: YOSI JO Radiology Department PHYS: Shawna Michelle MD [address] : 1995 AGE: 24 SEX: F [place], [place] [address] LOC: [facility] PHONE #: [phone] EXAM DATE: 04/19/2020 STATUS: REG CLI FAX #: [phone] RAD NO: Page 1 Signed Report (CONTINUED) Patient Name: YOSI JO Unit No: [id number] EXAMS: CPT CODE: [id number] US PREG AFTER 1ST TRI 93813 (Continued) face and nasal bone seen Umbilical cord insertion in fetus seen Stomach seen. Renal Fossa observed Bladder seen Limited early scan The spine was not well visualized secondary to position Suggest follow up ultrasound in approximately 4 weeks abnormalities observed: None seen at this exam Placental location: Anterior Placental maturity : Grade 1 There is no evidence of placenta previa. Amniotic fluid volume is normal. Uterus and adnexa: No significant abnormality is seen. Thank you for allowing us to participate in the care of this patient. Waldo Branham M.D. Electronic Signature 03:43pm at 1543 Reported and signed by: Waldo Branham MD CC: Shawna Tompkins MD Technologist: Jadyn Navas RDMS, RVT Probe: Trnscrbd D/ (1543) [id number] Orig Print D/T: S: 04/19/2020 (1543) [facility] NAME: YOSI JO Radiology Department PHYS: Shawna Michelle MD [address] : 1995 AGE: 24 SEX: F [place] [address] LOC: [facility] PHONE #: [phone] EXAM DATE: 04/19/2020 STATUS: REG CLI FAX #: [phone] RAD NO: Page 2 Signed Report Patient Name: YOSI JO Unit No: [id number] EXAMS: CPT CODE: [id number] US PREG AFTER 1ST TRI 73356(Continued) [facility] NAME: YOSI JO Radiology Department PHYS: Shawna Michelle MD [address] : 1995 AGE: 24 SEX: F [place] [address] LOC: [facility] PHONE #: [phone] EXAM DATE: 04/19/2020 STATUS: REG CLI FAX #: [phone] RAD NO:Page 3 Signed Report
[2022-07-10 09:37] LABS: Urine Blood Negative (Negative); Urine Glucose Negative (Negative); Urine Protein Trace (Negative)
[2022-07-10] MEDS ORDERED: IBUPROFEN 200 MG TAB PO ONE (09:52)
[2022-07-10] MEDS ORDERED: dexAMETHasone 10 MG/ML VIAL ONE (09:52)
--- NOTE | 2022-07-10 10:32 | EDPHYS ---
Physician Documentation [facility] Name: Shelby Mcgee Age: 26 yrs Sex: Female : 1995 Arrival Date: 07/10/2022 Time: 08:49 Bed 11 Private MD: ED Physician Dajuan Vick HPI: 07/10 09:16 This 26 yrs old Female presents to ER via Ambulatory with complaints of Sore Throat. pm1 09:16 The patient presents with sore throat. The patient describes throat pain as raw, pm1 scratchy. Onset: The symptoms/episode began/occurred 2 day(s) ago. Severity of symptoms: in the emergency department the symptoms are unchanged. Modifying factors: The symptoms are alleviated by nothing, the symptoms are aggravated by nothing, Patient's oral intake status: good The patient has had contact with sick son, with strep two weeks ago, at home. Associated signs and symptoms: Pertinent positives: earache, headache. The patient has not recently seen a physician. 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 - Social history:: Smoking status: Reported history of juuling and/or vaping. ROS: 09:16 Constitutional: Negative for fever, chills, and weight loss, Eyes: Negative for injury, pm1 pain, redness, and discharge. 09:16 Cardiovascular: Negative for chest pain, palpitations, and edema, Respiratory: Negative for shortness of breath, cough, wheezing, and pleuritic chest pain, Abdomen/GI: Negative for abdominal pain, nausea, vomiting, diarrhea, and constipation, Back: Negative for injury and pain, MS/Extremity: Negative for injury and deformity, Skin: Negative for injury, rash, and discoloration. 09:16 ENT: Positive for ear pain, sore throat. 09:16 Neuro: Positive for headache. 09:16 All other systems are negative. Exam: 09:16 Constitutional: This is a well developed, well nourished patient who is awake, alert, pm1 and in no acute distress. Head/Face: Normocephalic, atraumatic. 09:16 Back: No spinal tenderness. No costovertebral tenderness. Full range of motion. Skin: Warm, dry with normal turgor. Normal color with no rashes, no lesions, and no evidence of cellulitis. MS/ Extremity: Pulses equal, no cyanosis. Neurovascular intact. Full, normal range of motion. 09:16 Eyes: Exam is negative for acute changes, Periorbital structures: appear normal, Pupils: no acute changes, Conjunctiva: no acute changes. 09:16 ENT: External ear(s): no acute changes, Ear canal(s): no acute changes, TM's: no acute changes, Mouth: no acute changes, Lips: normal, moist, Oral mucosa: normal, pink and intact, moist, negative for trismus, Posterior pharynx: Tonsils: bilaterally enlarged, with erythema, with exudate, no ulcerations, peritonsillar mass, is not appreciated, Voice: no acute changes. 09:16 Neck: Exam negative for acute changes. 09:16 Cardiovascular: Exam negative for acute changes, Rate: normal, Rhythm: regular, Pulses: no pulse deficits are appreciated. 09:16 Respiratory: Exam negative for acute changes, respiratory distress, shortness of breath. 09:16 Abdomen/GI: Inspection: abdomen appears normal, Palpation: abdomen is soft and non-tender, in all quadrants. 09:16 Neuro: Exam negative for acute changes, Orientation: is normal, Mentation: is normal, Motor: is normal, moves all fours. Vital Signs: 09:07 BP 126 / 83; Pulse 91; Resp 15; Temp 97.5(TE); Pulse Ox 99% on R/A; Weight 81.65 kg; ss Height 5 ft. 7 in. (170.18 cm); Pain 10/10; 09:07 Body Mass Index 28.19 (81.65 kg, 170.18 cm) ss MDM: 09:14 Patient medically screened. pm1 10:32 Data reviewed: vital signs. Data interpreted: Pulse oximetry: on room air is 99 %. pm1 Interpretation: normal. Counseling: I had a detailed discussion with the patient and/or guardian regarding: the historical points, exam findings, and any diagnostic results supporting the discharge/admit diagnosis, lab results, the need for outpatient follow up, a family practitioner, to return to the emergency department if symptoms worsen or persist or if there are any questions or concerns that arise at home. 07/10 09:15 Order name: Strep; Complete Time: 10: pm1 07/10 09:15 Order name: Flu; Complete Time: 10: pm1 07/10 09:15 Order name: COVID-19 SARS RT PCR (Document "Date of Onset" if Symptomatic); Complete pm1 Time: 07/10 09:37 Order name: Urine Dipstick-Ancillary; Complete Time: 09:41 EDMS 07/10 09:15 Order name: Urine Dipstick-Ancillary (obtain specimen); Complete Time: 09:40 pm1 07/10 09:15 Order name: Urine Test (obtain specimen); Complete Time: 09:40 pm1 Administered Medications: 10:00 Drug: Decadron (dexamethasone) 10 mg Route: IM; Site: right gluteus; ss 11:11 Follow up: Response: No adverse reaction ss 10:01 Drug: Ibuprofen 600 mg Route: PO; ss 11:11 Follow up: Response: No adverse reaction ss Disposition Summary: 07/10/22 10:32 Discharge Ordered Location: Home pm1 Problem: new pm1 Symptoms: have improved pm1 Condition: Stable pm1 Diagnosis - Streptococcal pharyngitis pm1 Followup: pm1 - With: Emergency Department - When: As needed - Reason: Worsening of condition Followup: pm1 - With: Private Physician - When: 2 - 3 days - Reason: Recheck today's complaints, Continuance of care, Re-evaluation by your physician Discharge Instructions: - Discharge Summary Sheet pm1 - Strep Throat, Adult pm1 Forms: - Work release form pm1 - Medication Reconciliation Form pm1 - Thank You Letter pm1 - Antibiotic Education pm1 - Prescription Opioid Use pm1 Prescriptions: - Amoxicillin 500 mg Oral Capsule - take 1 capsule by ORAL route every 8 hours for 10 days; 30 tablet; Refills: 0, pm1 Product Selection Permitted Signatures: Dispatcher [employer] Terese Cee RN RN ss Indra Bowden, SILVERIO ROLLWAY WORKER pm1 Corrections: (The following items were deleted from the chart) 09:08 09:08 Allergies: Codeine; ss ss
--- NOTE | 2022-07-10 10:32 | ER ---
Nurse's Notes [facility] Name: Shelby Mcgee Age: 26 yrs Sex: Female : 1995 Arrival Date: 07/10/2022 Time: 08:49 Bed 11 Private MD: Diagnosis: Streptococcal pharyngitis Presentation: 07/10 09:07 Chief complaint: Patient states: headache, sore throat and bilateral ear pain that ss began 2 days ago. Coronavirus screen: Client denies travel out of the [place] in the last 14 days. Ebola Screen: Patient denies exposure to infectious person. Patient denies travel to an Ebola-affected area in the 21 days before illness onset. Initial Sepsis Screen: Does the patient meet any 2 criteria? No. Patient's initial sepsis screen is negative. Does the patient have a suspected source of infection? No. Patient's initial sepsis screen is negative. Risk Assessment: Do you want to hurt yourself or someone else? Patient reports no desire to harm self or others. Onset of symptoms was July 01, 2022. 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 - Social history:: Smoking status: Reported history of juuling and/or vaping. Screenin:08 Abuse screen: Denies threats or abuse. Denies injuries from another. Nutritional ss screening: No deficits noted. Tuberculosis screening: Never had TB. Fall Risk None identified. Assessment: 09:07 General: Appears in no apparent distress. comfortable, Behavior is calm, cooperative. ss Neuro: Level of Consciousness is awake, alert, obeys commands, Oriented to person, place, time, situation. Cardiovascular: Capillary refill < 3 seconds is brisk in bilateral fingers Chest pain. Respiratory: Airway is patent Trachea midline Respiratory effort is even, unlabored, Respiratory pattern is regular, symmetrical. EENT: Oral mucosa is moist. Throat is reddened has patchy exudate has enlarged tonsils bilaterally. Derm: Skin is intact, is healthy with good turgor, Skin is dry, Skin is pink, warm \T\ dry. normal. 11:08 Reassessment: Patient appears in no apparent distress at this time. Patient and/or ss family updated on plan of care and expected duration. Pain level reassessed. Pt states feeling a little better after medication administration. Vital Signs: 09:07 BP 126 / 83; Pulse 91; Resp 15; Temp 97.5(TE); Pulse Ox 99% on R/A; Weight 81.65 kg; ss Height 5 ft. 7 in. (170.18 cm); Pain 10/10; 09:07 Body Mass Index 28.19 (81.65 kg, 170.18 cm) ED Course: 08:49 Patient arrived in ED. as 09:08 Triage completed. ss 09:08 Arm band placed on right wrist. ss 09:14 Indra Bowden NP is PHCP. pm1 09:14 Dajuan Vick MD is Attending Physician. pm1 09:40 Terese Jones RN is Primary Nurse. ss 11:08 Patient has correct armband on for positive identification. Bed in low position. ss 11:10 No provider procedures requiring assistance completed. Patient did not have IV access ss during this emergency room visit. Administered Medications: 10:00 Drug: Decadron (dexamethasone) 10 mg Route: IM; Site: right gluteus; ss 11:11 Follow up: Response: No adverse reaction ss 10:01 Drug: Ibuprofen 600 mg Route: PO; ss 11:11 Follow up: Response: No adverse reaction ss Medication: 11:08 VIS not applicable for this client. Outcome: 10:32 Discharge ordered by . pm1 11:10 Discharged to home ambulatory. ss 11:10 Condition: good 11:10 Discharge instructions given to patient, Instructed on discharge instructions, follow up and referral plans. medication usage, Demonstrated understanding of instructions, follow-up care, medications, Prescriptions given X 1. 11:11 Patient left the ED. Signatures: Domonique Noriega as Terese Jones, DOMENICO RN Indra Bowden NP BEADING MACHINE OPERATOR pm1 Corrections: (The following items were deleted from the chart) 09:08 09:08 Allergies: Codeine; ss ss
[2022-07-10 11:16] VITALS: BP 126/83; TEMP 97.5; O2SAT 99
== END 2022-07-10 11:11 | disposition home or self-care (01) ==
LOC: ER 08:47
DX: J02.0 Streptococcal pharyngitis (principal); Z20.822 Contact with and (suspected) exposure to COVID-19
CPT/HCPCS: 87081; 81003; 87804 ×2; 96372; 99283; U0003; J1100